=== PATIENT | female | born 1990 | race Caucasian/White ===

== ENCOUNTER 2017-07-04 22:07 | Emergency (ER) | END 2017-07-05 01:00 | disposition left against medical advice (07) ==

== ENCOUNTER 2017-07-05 12:08 | Emergency (ER) | END 2017-07-05 18:24 | disposition home or self-care (01) ==

== ENCOUNTER 2017-08-18 18:43 | Emergency (ER) | END 2017-08-19 01:14 | disposition home or self-care (01) ==